=== PATIENT | female | born 1950 | race Caucasian/White ===

== ENCOUNTER 2017-08-01 12:11 | Emergency (ER) | payer OTHER ==
[~2017-08-01] VITALS: Ht 152.4 cm; Wt 90.6 kg
[~2017-08-01 12:11] MED LIST: ADVAIR 250/501 DISK IH; ADVAIR 500/501 DISK IH; ASPIR 8181 M1 PO; ASPIRIN CHEWABL81 M1 PO; CALCIUM 500 MG1 EACH PO; CELEXA10 MG PO; CLARITIN,ALAVAR10 MG PO; CLARITIN10 M3 PO; CLONAZEPAM0.5 MG PO; CLONIDINE HCL0.3 MG PO; DAILY VITAMIN1 EAC8 PO; DAILY VITE1 EAC1 PO; DECADRON4 MG PO; FLEXERIL10 MG PO; HYDROCODON-ACE1 EAC7 PO; KLONOPIN0.5 M1 PO; KLONOPIN2 MG PO; LEVAQUIN500 MG PO; LEVAQUIN750 MG PO; MEDROL DOSEPAK4 MG PO; MONTELUKAST SOD10 MG PO; MOTRIN IB200 MG PO; MOTRIN600 MG PO; NAPROSYN500 MG PO; NAPROXEN500 MG PO; PAXIL20 MG PO; PREDNISONE10 MG PO; PROVENTIL,2.5 MG/0.5 IH; PROVENTIL,2.5 MG/3 M IH; Proventil,Ventolin H IH; SINGULAIR10 MG PO; STRATTERA40 MG PO; VENTOLIN HFA18 GM IH; VITAMIN C1000 MG PO; VITAMIN D1000 INTUN PO; VITAMIN D1000 UNIT PO; VITAMIN D31000 UNIT PO; advair diskus IH; predniSONE PO
[2017-08-01] MEDS ORDERED: PREDNISONE50 MG PO (13:01)
[2017-08-01 13:16] VITALS: BP 157/136
== END 2017-08-01 13:18 | disposition home or self-care (01) ==
LOC: EME 12:11
DX: R07.9 Chest pain, unspecified (principal); R06.02 Shortness of breath; J44.9 Chronic obstructive pulmonary disease, unspecified; Z79.82 Long term (current) use of aspirin
CPT/HCPCS: 93005; 99281; 99284

== ENCOUNTER 2017-09-08 16:15 | Emergency (ER) | payer OTHER ==
[~2017-09-08] VITALS: Ht 152.4 cm; Wt 83.7 kg
[~2017-09-08 16:15] MED LIST changes: +PREDNISONE50 MG PO
[2017-09-08 17:07] LABS: HEMATOCRIT 40.5 % (36.0-46.0); MCH 28.7 PG (29.0-34.0); MCHC 32.3 G/DL (30.0-36.0); MCV 88.8 FL (83-99); MEAN PLAT.VOLUME 10.7 uM^3 (9.5-12.4); PLATELET COUNT 272 K/uL (156-360); RBC DIS.WIDTH-CV 12.9 % (11.8-14.6); RBC DIS.WIDTH-SD 42.5 % (39-53); RED BLOOD COUNT 4.56 M/uL (3.80-5.20)
[2017-09-08 17:28] LABS: CHLORIDE 105 mEq/L (99-109); POTASSIUM 4.6 mEq/L (3.7-5.4); SODIUM 142 mEq/L (136-147)
[2017-09-08 17:31] LABS: GLUCOSE 95 mg/dL (70-99)
[2017-09-08 17:32] LABS: ANION GAP 8 MEQ/L (2-14)
[2017-09-08 17:33] LABS: TOTAL BILIRUBIN 0.2 mg/dL (0.0-1.0)
[2017-09-08 17:34] LABS: ALKALINE PHOSPHATASE 84 IU/L (3-129); GFR ESTIMATE (CALCULATED) > 59 mL/min/
[2017-09-08 17:35] LABS: UREA NITROGEN (BUN) 9 mg/dL (9-23)
[2017-09-08 17:38] LABS: LIPASE 26 U/L (1.0-51.0); TROP-I INTERPRETATION NEGATIVE; TROPONIN-I < 0.01 ng/mL (0.0-0.30)
[2017-09-08 18:26] LABS: INFLUENZA A VIRAL ANTIGEN NEGATIVE; INFLUENZA B VIRAL ANTIGEN NEGATIVE
[2017-09-08] MEDS ORDERED: VENTOLIN HFA18 GM IH (20:05)
[2017-09-08 20:49] LABS: TROP-I INTERPRETATION NEGATIVE; TROPONIN-I < 0.01 ng/mL (0.0-0.30)
[2017-09-08 21:15] VITALS: BP 140/85
== END 2017-09-08 21:29 | disposition home or self-care (01) ==
LOC: EME 16:15
PROVIDERS: Emergency Medicine
DX: J40 Bronchitis, not specified as acute or chronic (principal); J44.9 Chronic obstructive pulmonary disease, unspecified; Z79.82 Long term (current) use of aspirin
CPT/HCPCS: 71020; 80053; 83690; 84484; 85027; 87502; 93005; 99281; 99285; J7030

== ENCOUNTER 2018-04-13 18:57 | Emergency (ER) | payer OTHER ==
[~2018-04-13] VITALS: Ht 152.4 cm; Wt 93.7 kg
[2018-04-13 19:39] LABS: HEMATOCRIT 41.6 % (36.0-46.0); MCH 29.2 PG (29.0-34.0); MCHC 33.7 G/DL (30.0-36.0); MCV 86.7 FL (83-99); PLATELET COUNT 274 K/uL (156-360); RBC DIS.WIDTH-CV 12.7 % (11.8-14.6); RBC DIS.WIDTH-SD 40.3 % (39-53); WHITE BLOOD COUNT 13.2 K/uL (4.1-10.2)
[2018-04-13 19:54] LABS: CHLORIDE 101 mEq/L (99-109); POTASSIUM 4.1 mEq/L (3.7-5.4); SODIUM 137 mEq/L (136-147)
[2018-04-13 19:55] LABS: GLUCOSE 135 mg/dL (70-99)
[2018-04-13 19:59] LABS: CREATININE 0.7 mg/dL (0.6-1.3); GFR ESTIMATE (CALCULATED) > 59 mL/min/
[2018-04-13 20:00] LABS: UREA NITROGEN (BUN) 11 mg/dL (9-23)
[2018-04-13 20:03] LABS: TROP-I INTERPRETATION NEGATIVE; TROPONIN-I < 0.01 ng/mL (0.0-0.30)
[2018-04-13 22:19] LABS: APPEARANCE CLEAR ((CLEAR)); BILIRUBIN NEGATIVE; BLOOD SMALL; COLOR YELLOW ((YELLOW)); GLUCOSE (STRIP) NEGATIVE; KETONES NEGATIVE; LEUKOCYTES NEGATIVE; NITRITE NEGATIVE; PROTEIN (STRIP) NEGATIVE; SPECIFIC GRAVITY 1.011 (1.000-1.030); UROBILINOGEN 0.2 MG/DL (0.2-1.0)
[2018-04-13 22:30] LABS: BACTERIA NONE SEEN /HPF; EPITHELIAL CELLS RARE /HPF; MUCUS NONE SEEN /LPF; RED BLOOD CELLS 0-5 /HPF (0-5); UCUL ADDED? NO; WHITE BLOOD CELLS 0-5 /HPF (0-5)
[2018-04-13 23:29] LABS: TROP-I INTERPRETATION NEGATIVE; TROPONIN-I < 0.01 ng/mL (0.0-0.30)
[2018-04-13] MEDS ORDERED: FLEXERIL10 MG PO (23:58)
[2018-04-14 00:20] VITALS: BP 106/80
== END 2018-04-14 00:25 | disposition home or self-care (01) ==
LOC: EME 18:57
PROVIDERS: Physician Assistant
DX: M54.6 Pain in thoracic spine (principal); M81.0 Age-related osteoporosis without current pathological fracture; R00.0 Tachycardia, unspecified; J44.9 Chronic obstructive pulmonary disease, unspecified; K21.9 Gastro-esophageal reflux disease without esophagitis; F32.9 Major depressive disorder, single episode, unspecified; F41.9 Anxiety disorder, unspecified; I25.2 Old myocardial infarction; Z91.040 Latex allergy status
CPT/HCPCS: 71046; 72070; 80048; 81003; 84484; 85027; 85379; 93005; 99281; 99285